=== PATIENT | male | born 1960 | race Caucasian/White ===

== ENCOUNTER 2017-03-31 01:19 | Emergency (ER) | payer BC, OTHER ==
[2017-03-31 01:26] VITALS: BP 141/91
[2017-03-31] MEDS ORDERED: CLINDAMYCIN HCL 150 MG CAPSULE PO ONE (01:59)
--- NOTE | 2017-03-31 02:04 | ERNOTE ---
ENT HPI Presenting Symptoms: dental pain Time Seen by Provider: 03/31/17 01:52 Source: patient Exam Limitations: no limitations - Immun/Allergies/Home Medications Immunizations: IMMUNIZATION HX Immunizations Up to Date No Allergies/Adverse Reactions: Allergies Allergy/AdvReac Type Severity Reaction Status Date / Time No Known Allergies Allergy Verified 03/31/17 01:26 Home Medications: HOME MEDICATIONS Clindamycin HCl [Cleocin HCl] 300 mg PO QID #20 capsule 03/31/17 [Last Taken Unknown] - History of Present Illness Narrative: Pt was awakened with lower jaw pain. He has previously had a dental infection in this same area. Severity: Present: moderate ENT Location: Present: dental Prearrival Treatment: Present: no prearrival treatment Review of Systems - Review of Systems Constitutional: Absent: recent illness EYE: Present: no symptoms reported ENT: Present: See HPI. Absent: sore throat Respiratory: Present: no symptoms reported Cardiology: Present: no symptoms reported Gastrointestinal/Abdominal: Absent: nausea, vomiting Skin: Absent: rash, change in color Hematologic/Lymphatic: Absent: swollen glands - Patient's Past Medical History Patient History - Cardiac/Respiratory: No pertinent hx Patient History - Cancer: No Hx of Cancer Patient History - Surgical Procedures: No surgical history Patient History - Other: None - Social History Living Situations: home Smoking Status: Current every day smoker Alcohol Use: none Drug Use: none - Immunizations Immunizations Up to Date: No Physical Exam - Physical Exam General Appearance: Present: wd/wn, alert, no apparent distress Head Exam: Present: normal inspection, no evidence of injury Eye Exam: Normal inspection: bilateral Ears, Nose, Throat: Present: other - moderate / severe receding gums anterior lower jaw. Mild erythema to gingival tissue. Tender to palpation Neck: Present: normal inspection, nontender Respiratory: Present: no respiratory distress, no accessory muscle use Back Exam: Present: normal inspection, normal range of motion Extremity Exam: Present: normal inspection, normal range of motion Neurological Exam: Present: alert, oriented, normal mood/affect Skin Exam: Present: normal color, warm/dry Lymphatic Exam: Present: no adenopathy ED Progress - Vital Signs Vital Signs: Vital Signs 03/31/17 03/31/17 01:19 01:23 Temperature 36.8 C Pulse Rate 84 Respiratory 20 Rate Blood Pressure 139/80 141/91 O2 Sat by Pulse 97 Oximetry - Progress/Reassessment Chief Complaint: Dental Problem Departure Clinical Impression: Dental infection - Departure Disposition: Home Follow Up Needed Condition: Good Instructions: Dental Abscess, [id number] Additional Instructions: See a dentist as soon as possible Prescriptions: Clindamycin HCl [Cleocin HCl] 300 mg PO QID #20 capsule
== END 2017-03-31 02:14 | disposition home or self-care (01) ==
LOC: ER 01:19
DX: K04.7 Periapical abscess without sinus (principal); F17.200 Nicotine dependence, unspecified, uncomplicated